=== PATIENT | male | born 1980 | race Caucasian/White ===

== ENCOUNTER → 2017-02-23 | Day surgery (SDC) | payer OTHER ==
[2017-02-09 13:45] VITALS: BMI 37.0
--- NOTE | 2017-02-09 14:12 | PAT Medication Instructions ---
Service Date Feb 09, 2017. Current Home Medication List Apixaban (Eliquis), 5 MG PO BID Baclofen (Lioresal), 20 MG PO BID Buspirone Hcl (Buspar), 7.5 MG PO BID Lorazepam (Ativan), 0.5 MG PO HS Metformin HCl (Metformin HCl), 500 MG PO QAM Metoprolol Tartrate (Lopressor) (Lopressor), 50 MG PO BID Sertraline Hcl (Zoloft), 150 MG PO QAM Triamcinolone Acetonide (Topic (Triamcinolone Acet 0.025%), 1 APPLN TOP BID PRN for UNDECIDED Medication Instructions For Your Scheduled Surgery - Check with surgeon/prescribing physician for instructions: Apixaban (Eliquis), 5 MG PO BID - Hold the following medications 24 hours prior to surgery: Triamcinolone Acetonide (Topic (Triamcinolone Acet 0.025%), 1 APPLN TOP BID PRN for UNDECIDED - Hold the following medications 48 hours prior to surgery: Metformin HCl (Metformin HCl), 500 MG PO QAM - Take the following medications the morning of surgery with a sip of water: Sertraline Hcl (Zoloft), 150 MG PO QAM Metoprolol Tartrate (Lopressor) (Lopressor), 50 MG PO BID Buspirone Hcl (Buspar), 7.5 MG PO BID Baclofen (Lioresal), 20 MG PO BID - Take the following medications as scheduled the night before surgery: Metoprolol Tartrate (Lopressor) (Lopressor), 50 MG PO BID Buspirone Hcl (Buspar), 7.5 MG PO BID Lorazepam (Ativan), 0.5 MG PO HS Baclofen (Lioresal), 20 MG PO BID If you have any questions please call us at [phone] or [phone] or [phone]
[2017-02-09 14:54] LABS: BASO % 0.2 %; BASO ABS # 0.02 K/uL (0-0.2); COMPLETE YES; EOS % 1.4 %; IG% 0.2 %; LYMPH % 12.3 %; LYMPH ABS # 1.09 K/uL (1.2-3.4); MEAN CELL VOLUME 80.6 fL (80-100); MEAN CORPUSCULAR HEMOGLOBIN 26.4 pg (25-34); MEAN CORPUSCULAR HGB CONC 32.7 g/dl (32-36); MEAN PLATELET VOLUME 11.5 fL (7.4-10.4); MONO % 7.7 %; NEUT % 78.2 %; PLATELET COUNT 209 K/uL (130-400); RED BLOOD COUNT 4.59 M/uL (4.7-6.1); WHITE BLOOD COUNT 8.86 K/uL (4.8-10.8)
[2017-02-09 15:14] LABS: URINE APPEARANCE CLEAR (CLEAR); URINE BILIRUBIN NEG (NEG); URINE COLOR YELLOW; URINE NITRITE NEG (NEG); URINE PH 6.5 (4.5-7.5); URINE SPECIFIC GRAVITY 1.022 (1.000-1.030); UROBILINOGEN NEG (NEG)
[2017-02-09 15:15] LABS: MANUAL MICROSCOPIC REQUIRED? NO; REVIEW REQ? NO
[2017-02-09 15:33] LABS: BUN/CREATININE RATIO 15.4 (10-20); CREATININE 0.91 mg/dl (0.60-1.40)
--- NOTE | 2017-02-18 09:35 | History and Physical ---
History & Physical Date & Time of Service: Feb 17, 2017 at 15:00 Chief Complaint: Lower Extremity Spasticity Controlled on Oral Baclofen Primary Care Physician: Pako Aragon D.O. History of Present Illness Source: patient Mr. 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 He had an intrathecal baclofen pump and catheter delivery system implanted several years ago for the patient's left lower extremity spasticity. He states that the intrathecal baclofen pump was providing mild relief of the spasms but he does report significant difficulty keeping his refill appointments due to travel issues. Because of these issues, the patient has been decreasing the intrathecal baclofen dose and using oral baclofen instead. He reports intermittent spasms of the left lower extremity throughout the day which are well controlled with 20 mg of baclofen twice daily. Patient does have chronic lower extremity lymphedema and weakness and sensation changes from T10 level and down. Patient does have bowel/bladder function. No constitutional complaints, falls, headache, or spasticity in the arms. Case discussed with Dr. Gaston Social History Smoking Status: Never Smoker Smokeless Tobacco Use: No Alcohol Use: none Drug Use: none Marital Status: single Housing status: lives with family Occupational Status: disabled Allergies Coded Allergies: Penicillins (Verified Allergy, Unknown, hives, 02/09/17) Sulfa Antibiotics (Verified Allergy, Unknown, "Very sick", 02/09/17) Home Medications Scheduled Apixaban (Eliquis), 5 MG PO BID Baclofen (Lioresal), 20 MG PO BID Buspirone Hcl (Buspar), 7.5 MG PO BID Lorazepam (Ativan), 0.5 MG PO HS Metformin HCl (Metformin HCl), 500 MG PO QAM Metoprolol Tartrate (Lopressor) (Lopressor), 50 MG PO BID Sertraline Hcl (Zoloft), 150 MG PO QAM Scheduled PRN Triamcinolone Acetonide (Topic (Triamcinolone Acet 0.025%), 1 APPLN TOP BID PRN for UNDECIDED Review of Systems Constitutional: No fever, No chills, No sweats, No weight loss, No weakness, No fatigue, No problem reported Eyes: No worsening of vision, No eye pain, No redness, No discharge, No diplopia, No problem reported ENT: No hearing loss, No unusual epistaxis, No nasal symptoms, No sore throat, No tinnitus, No dental problems, No trouble swallowing, No problem reported Respiratory: No cough, No sputum, No wheezing, No shortness of breath, No dyspnea on exertion, No dyspnea at rest, No hemoptysis, No problem reported Cardiovascular: No chest pain, No orthopnea, No PND, No edema, No claudication , No palpitations, No problem reported Abdomen: No pain, No nausea, No vomiting, No diarrhea, No constipation, No GI bleeding, No problem reported Musculoskeletal: + swelling (of lower legs), + problem reported (intermittent lower extremity spasticity) Genitourinary - Male: No hematuria, No dysuria, No urinary frequency, No urinary urgency, No urinary hesitancy, No urinary retention, No urinary incontinence, No penile discharge, No lesions, No impotence, No problem reported Neurologic: + paralysis (paraplegia) Psychiatric: + depression symptoms, + anxiety Endocrine: No fatigue, No excessive thirst, No excessive urination, No problem reported Physical Exam Vital Signs as per admission GENERAL: Mr. Landa is a 36 y/o white male that appears his stated age. Speech and cognition is intact. Mood and affect is appropriate. Sitting in wheelchair, in no acute distress. HEAD: Normocephalic; atraumatic. EYES: Pupils are round, equal, and reactive to light; EOM intact. ENT: No external ear discharge or lesions. No rhinorrhea or epistaxis. No mucosal lesions. CARDIO: Regular rate and rhythm. No murmurs, rubs, or gallops. PULM: Clear to auscultation. No wheezes, rales, or rhonchi. CHEST: Regular chest respiration and excursion. ABDOMEN: Active bowel sounds throughout; non-tender to palpation. No peritoneal signs. No CVA tenderness bilaterally. EXTREMITIES: There is no strength of the bilateral lower extremities. No reynaldo spasm noted. There are compression stockings on both legs. BACK: Well healed surgical incision of thoracic midline. NEURO: CN II-XII grossly intact with no focal deficits noted. There is no sensation from the low abdomen to the feet. SKIN: No lesions, erythema, or rashes noted. Impression Assessment and Plan (1) Status post lumbar spine surgery for decompression of spinal cord (2) GERD (gastroesophageal reflux disease) (3) Depressive disorder (4) Anxiety disorder (5) Diabetes mellitus (6) Spastic diplegia, acquired, lower extremity Mr. Landa is a 36 year old white male with a significant history of a previous spinal abscess which resulted in paraplegia with lower extremity spasticity. He had an intrathecal Baclofen pump implanted but the patient noticed only mild efficacy. He now reports adequate relief of the lower extremity spasticity with oral Baclofen at 20mg BID-TID and the pump at minimal rate. Pump battery is expiring and the patient would like the pump explanted. Risks and benefits were reviewed with the patient. Procedure was explained. Patient is understanding and he would like to proceed with the procedure. The intrathecal catheter will be left in place should the patient's symptoms not be well controlled with the oral Baclofen in the future. Procedure is scheduled for 02/23/17.
[~2017-02-23] VITALS: Ht 182.9 cm; Wt 125.0 kg
[~2017-02-23] MED LIST: APIX1TAB3 PO; ATROPINE SULFATE 0.1 MG/ML 5ML SYR IV PRN; BACITRACIN 50000 UNIT VIAL ONE; BACL10TA PO; BUPIVACAINE/EPINEPHRINE 0.25% 1:200,000 30 ML VIAL ONE; BUSP15TA70 PO; CEFAZOLIN 2000MG IV PUSH 10 ML IV SCH; CHECK SCOPOLAMINE PATCH PLACEMENT SCH; EpHEDrine SULFATE INJ 50 MG/ML AMP IV PRN; FENTANYL CITRATE INJ 50 MCG/1 ML 2 ML VIAL IV PRN; FENTANYL CITRATE INJ 50 MCG/1 ML 2 ML VIAL ONE; GLC500 PO; HYDROCODONE/ACETAMOPHEN 5/325MG TAB PO PRN; LACTATED RINGER'S 1000ML 1,000 ML IV SCH; LIDO 2%/EPINEPHRINE 1:100000 20 ML VIAL INFIL ONE; LORA-741 PO; METO50TA16 PO; MIDAZOLAM HCL 1 MG/ML 2ML VIAL ONE; NURSING VERBAL MED ORDER ONE; ONDANSETRON INJ 2 MG/ML 2 ML VIAL IV PRN; SCOPOLAMINE 1.5 MG TDSY TD ONE; SCOPOLAMINE 1.5 MG TDSY TD SCH; SERT100T PO; TRMO2580 TOP; VANCOMYCIN 1GM/270ML NSS IV SCH
[2017-02-23 06:43] VITALS: BP 151/85; PULSE 89; TEMP 36.5; O2SAT 100; Ht 182.9 cm; Wt 125.0 kg
--- NOTE | 2017-02-23 08:23 | History & Physical Bridge Note ---
H&P Re-Evaluation Bridge Note: I have examined the patient, reviewed the History & Physical and in the interval since the performance of the History & Physical I have noted the following changes of clinical significance: No changes noted
--- NOTE | 2017-02-23 09:02 | Discharge Instructions ---
Discharge Instructions Date of Service Feb 23, 2017. Visit Reason for Visit: Lower Extremity Spasticity Controlled on Oral Bacl Discharge Discharge Diagnosis / Problem: Paraplegia with controlled spasm on oral baclofen. Explanation ITP Discharge Goals Goal(s): Decrease discomfort Activity Recommendations Activity Limitations: as noted below Lifting Limitations: no more than 10 pounds Exercise/Sports Limitations: until after follow-up appointment May Resume Sexual Activity: after follow-up appointment Shower/Bathe: may shower/bathe in 3 days, keep incision dry Driving or Machine Use: until after follow-up appointment Please wear abdominal binder at all times for 4 weeks Keep the dressing dry clean and in place. Please change the dressing daily and look for redness or swelling Please do not remove the purplish tape dressing Do not lift more than 10 pounds for 4 weeks A prescription for hydrocodone/Tylenol (norco) was provided to you. Please take 1 tablet by mouth every 6 hours as needed for pain. Anesthesia . Post Anesthesia Instructions: If you have had General Anesthesia or IV Sedation: * Do not drive today. * Resume driving when surgeon permits. * Do not make important decisions or sign legal documents today. * Call surgeon for: 1. Temperature elevations greater than 101 degrees F. 2. Uncontrollable pain. 3. Excessive bleeding. 4. Persistent nausea and vomiting. 5. Medication intolerance (nausea, vomiting or rash). * For nausea and vomiting use only clear liquids such as: tea, soda, bouillon until nausea subsides, then gradually increase diet as tolerated. * If you have any concerns or questions, call your surgeon's office. If physician is unavailable and it is an emergency, call 911 or go to the nearest emergency room. . Instructions / Follow-Up Instructions / Follow-Up Please follow-up at the [facility] pain clinic on 03/09/2017 at 11:05 AM with Rashid Villa PA-C for a wound check If he cannot keep this appointment or have any questions or concerns please call us at [phone]. Diet Recommendations Recommended Home Diet: no limitations, resume previous diet Procedures Procedures Performed: Explantation of intrathecal baclofen pump Pending Studies Studies pending at discharge: no Medical Emergencies . Who to Call and When: Medical Emergencies: If at any time you feel your situation is an emergency, please call 911 immediately. . Non-Emergent Contact Non-Emergency issues call your: Primary Care Provider Call Non-Emergent contact if: you have a fever, your pain is not controlled, your pain is worsening, your pain is unusual for you, your pain is concerning you, wound has increased drainage, wound has increased redness, wound has increased pain, you have any medication questions . Past History Medical & Surgical History: (1) Spastic diplegia, acquired, lower extremity (2) Diabetes mellitus (3) Anxiety disorder (4) Depressive disorder (5) GERD (gastroesophageal reflux disease) . "Provider Documentation" section prepared by Ratna Gaston. . [place] Drug Monitoring Program Search Results: patient reviewed within database, no issues identified
--- NOTE | 2017-02-23 10:50 | [facility] Post Operative Brief Note ---
Immediate Operative Summary Operative Date Feb 23, 2017. Pre-Operative Diagnosis End of life intrathecal pump Post-Operative Diagnosis End of life intrathecal pump Procedure(s) Performed Explantation of Intrathecal Pain Pump Surgeon Dr. Ratna Gaston [facility] Manager Surgeon(s) None Estimated Blood Loss 20 mL Findings uncomplicated removal Specimens Permanent specimens A: Explanted intrathecal pump Drains none Anesthesia IV sedation Complication(s) None Disposition Recovery Room / PACU
--- NOTE | 2017-02-23 11:01 | Operative Note-Pain Management ---
Pain Clinic Operative Note PROCEDURE PERFORMED: Intrathecal pump explantation PREOPERATIVE DIAGNOSIS: end of life intrathecal pump, patient expresses desire to have pump removed POSTOPERATIVE DIAGNOSIS: Same. COMPLICATIONS: None. SURGEON: Dr. Ratna Gaston. ANESTHESIA: MAC MATERIAL FORWARDED TO THE LAB: Explanted intrathecal pump. EBL: 20ml INDICATIONS: The patient had an end of life pump and requested explantation as the intrathecal pump was no longer necessary for maintaining his spasm control. The patient was explained the risks, benefits, alternatives of the procedure and agreed to proceed as above. Informed consent was obtained and witnessed. A time out was performed after the patient was brought into the Operating Room. Antibiotics were given. The patient was given monitored anesthesia care without complications and was placed in the supine position. The skin was prepped with duraprep and betadine and draped in sterile fashion. The existing pump was identified and using a scalpel, electrocautery, and blunt dissection, the existing pump was exposed. The 3 retaining sutures were removed and the old pump and proximal portion of the intrathecal catheter was explanted. 4 separate 0 silk ties were placed around the intrathecal catheter to ensure that CSF did not leak from the in situ catheter. The intrathecal catheter was not removed. Next approximately 4/5 of the capsule surrounding the pump was removed with electrocautery and hemostasis was excellent. Next, the pocket was irrigated with 3 bulb syringes full of sterile normal saline with bacitracin. Hemostasis was achieved. Then 2-0 silk sutures (3) were utilized to approximate the pocket. The skin and subcutaneous tissues were closed with 0-V LOC then 3- O V LOC and then Prineo dermabond dressing without complications. The skin was cleansed and dried and 4 x 4 fluffs and tape were placed for closure dressings. No complications were noted throughout the procedure. The patient tolerated the procedure well. Abdominal binder was placed on the patient. The patient was then transferred back to the [facility] and was taken to the recovery room in stable condition. The patient will follow up with our clinic within 14 days for a wound check. I attest to the content of the Intraoperative Record and any orders documented therein. Any exceptions are noted below.
--- NOTE | 2017-02-23 11:26 | Anesthesiology Progress Note ---
Anesthesia Post Op Note Date & Time Feb 23, 2017 at 11:26 Vital Signs Pain Intensity: 0 Vital Signs Past 12 Hours Date Time Temp Pulse Resp B/P (MAP) Pulse Ox O2 Delivery O2 Flow Rate FiO2 02/23/17 11:15 86 12 124/74 92 Room Air 02/23/17 11:05 84 17 137/67 99 Oxymask 10 02/23/17 10:55 36.6 88 18 144/79 100 Oxymask 10 02/23/17 06:43 36.5 89 20 151/85 (107) 100 Room Air Notes Mental Status: alert / awake / arousable, participated in evaluation Pt Amnestic to Procedure: Yes Nausea / Vomiting: adequately controlled Pain: adequately controlled Airway Patency, RR, SpO2: stable & adequate BP & HR: stable & adequate Hydration State: stable & adequate Anesthetic Complications: no major complications apparent
[2017-02-23 11:33] VITALS: BP 130/63; PULSE 91; TEMP 37.2; O2SAT 95
[2017-02-23 12:00] VITALS: BP 116/54; PULSE 96; TEMP 37; O2SAT 94
== END | disposition home or self-care (01) ==
LOC: C.ACU 05:37
PROVIDERS: ATTEND Anesthesiology
DX: Z45.1 Encounter for adjustment and management of infusion pump (principal); G82.20 Paraplegia, unspecified; E11.9 Type 2 diabetes mellitus without complications; K21.9 Gastro-esophageal reflux disease without esophagitis; F32.9 Major depressive disorder, single episode, unspecified; F41.9 Anxiety disorder, unspecified; Z79.899 Other long term (current) drug therapy